=== PATIENT | female | born 2000 | race Caucasian/White ===

== ENCOUNTER 2022-09-26 17:42 | Emergency (ER) | payer OTHER, SELFPAY ==
[2022-09-26 17:51] VITALS: BP 113/82; PULSE 94; RESP 18; TEMP 37.3; O2SAT 98; BMI 20.7
--- NOTE | 2022-09-26 17:59 | XR_ITS ---
[address] [address] Patient Name: ANAHI CARNEY MRN: [id number] date: 2000 Sex: F Assigned Patient Location: ER Current Patient Location: ED.MAIN Accession/Order Number: [id number] Exam Date: 09/26/2022 18:10 Report Date: 09/26/2022 18:30 At the request of: CLAUDIA CHANDRA Procedure: XR hand LT min 3V EXAM: XR hand LT min 3V HISTORY: Dog bite COMPARISON: None. TECHNIQUE: 3 views FINDINGS: No radiodense foreign body, osseous lesion, fracture, dislocation or subluxation. Joint spaces are normal. No visualized effusion. No visualized soft tissue edema. IMPRESSION: Normal x-rays Electronically authenticated by: MAHI HILLS Date: 09/26/2022 18:30
--- NOTE | 2022-09-26 18:38 | ED.ANIMALBI1 ---
HPI - Animal Bite General Chief Complaint: Animal Bite Stated Complaint: Animal BITE Time Seen by Provider: 09/26/22 17:57 Source: patient Mode of arrival: walk-in Limitations: no limitations History of Present Illness HPI narrative: cc - bitten by dog Patient works at an [employer] [place] [employer] and was bitten by one of the dogs yesterday on the left hand. She as a small puncture on the left index finger and a small abrasion on the left ring finger. Her tetanus is up to date. She has taken OTC meds for pain. Related Data Home Medications Medication Instructions Recorded Confirmed escitalopram oxalate 10 mg tablet mg PO DAILY 09/26/22 Allergies Allergy/AdvReac Type Severity Reaction Status Date / Time No Known Drug Allergies Allergy Verified 09/26/22 17:55 PFSH PFSH Social History Smoking status: Never smoker Exam Narrative: Exam Narrative: Nurses notes and vital signs reviewed and patient is not hypoxic. afebrile General: Well-appearing and in no apparent distress. Skin: Warm, dry, no pallor noted. No rash. Head: Normocephalic, atraumatic. Cardiovascular: normal peripheral perfusion. Respiratory: No accessory muscle use or respiratory distress. Lungs are clear to auscultation, no wheezing, rales or rhonchi Musculoskeletal: puncture wound left index finger. small abrasion to left ring finger. normal ROM all fingers and hand Neurological: A&O x4. No cranial nerve dysfunction observed. No truncal ataxia. Moves all extremities. Sensation intact. Psychiatric: Cooperative and interactive. Normal mood and affect. Constitutional: Vital Signs, click to edit/add: Vital Signs - 24 hr 09/26/22 17:51 Temperature 99.1 F Pulse Rate [Monito r] 94 H Respiratory Rate 18 Blood Pressure [Le ft Arm] 113/82 H Pulse Oximetry 98 Oxygen Delivery Me thod Room Air Course Vital Signs Vital signs: Vital Signs Temperature 99.1 F 09/26/22 17:51 Pulse Rate 94 H 09/26/22 17:51 Respiratory Rate 18 09/26/22 17:51 Blood Pressure 113/82 H 09/26/22 17:51 Pulse Oximetry 98 09/26/22 17:51 Oxygen Delivery Method Room Air 09/26/22 17:51 Temperature 99.1 F 09/26/22 17:51 Pulse Rate 94 H 09/26/22 17:51 Respiratory Rate 18 09/26/22 17:51 Blood Pressure 113/82 H 09/26/22 17:51 Pulse Oximetry 98 09/26/22 17:51 Oxygen Delivery Method Room Air 09/26/22 17:51 MDM - Animal Bite MDM Narrative Medical decision making narrative: xrays of the left hand negative for fracture of foreign material. Patient given a dose of augmentin in the ED and discharged home with a prescription for more augmentin. She will need to see occupational health for follow up. Imaging Data xray left hand: Radiologist's impression: No radiodense foreign body, osseous lesion, fracture, dislocation or subluxation. Joint spaces are normal. No visualized effusion. No visualized soft tissue edema. IMPRESSION: Normal x-rays Electronically authenticated by: MAHI HILLS Date: 09/26/2022 18:30 Discharge Plan Discharge Chief Complaint: Animal Bite Clinical Impression: Dog bite Patient Disposition: Home, Self-Care Time of Disposition Decision: 18:43 Prescriptions: No Action escitalopram oxalate 10 mg tablet PO DAILY Additional Instructions: call to follow up with occupational health Stand Alone Forms: Portal Instructions
== END 2022-09-26 19:10 | disposition home or self-care (01) ==
PROVIDERS: Emergency Provider Emergency Medicine; PCP Family Medicine
DX: S61.452A Open bite of left hand, initial encounter (principal); W54.0XXA Bitten by dog, initial encounter
CPT/HCPCS: 73130; 99283

== ENCOUNTER 2024-03-30 15:23 | Outpatient (OUT) | payer OTHER, SELFPAY ==
[2024-03-30 15:54] LABS: Basophils Percent Auto 0.6 % (0.2-2.0); Eosinophils Absolute Auto 0.1 10^3/uL (0.0-0.7); Eosinophils Percent Auto 1.1 % (0.9-7.0); Hematocrit 43.4 % (36.0-48.0); Hemoglobin 14.3 g/dL (12.0-16.0); Immature Granulocytes Abs Auto 0.03 10^3/uL (0.00-0.03); Immature Granulocytes Pct Auto 0.4 % (0.0-0.5); Lymphocytes Absolute Auto 2.2 10^3/uL (1.2-3.8); Lymphocytes Percent Auto 30.9 % (20.5-60.0); Mean Corpuscular HGB Conc 32.9 g/dL (29.9-35.2); Mean Corpuscular Hemoglobin 30.4 pg (26.7-34.0); Mean Corpuscular Volume 92.3 fL (81.0-99.0); Mean Platelet Volume 10.4 fL (9.5-13.5); Monocytes Absolute Auto 0.4 10^3/uL (0.3-0.8); Monocytes Percent Auto 5.3 % (1.7-12.0); Neutrophils Absolute Auto 4.3 10^3/uL (1.4-6.5); Neutrophils Percent Auto 61.7 % (43.0-75.0); Platelet Count 213 10^3/uL (150-450); Red Cell Distribution Width 11.6 % (11.0-15.0)
[2024-03-30 16:26] LABS: BUN Creatinine Ratio 17.6; Calcium 9.6 mg/dL (8.5-10.1); Carbon Dioxide 26.5 mmol/L (21.0-32.0); Chloride 105 mmol/L (98-107); Estimated GFR (African America >60 (>=60 mL/min/1.73m^2); Estimated GFR (Non-African Ame >60 (>=60 mL/min/1.73m^2); Glucose 83 mg/dL (74-106); Potassium 3.5 mmol/L (3.5-5.1); Sodium 141 mmol/L (136-145)
[2024-04-01 06:10] LABS: C-Reactive Protein, Cardiac 0.47 mg/L (0.00-3.00)
[2024-04-01 15:10] LABS: ANA Direct Negative (Negative); Anti-DNA (DS) Ab Qn <1 IU/mL (0-9)
== END 2024-03-30 15:24 | disposition home or self-care (01) ==
LOC: LAB 15:26
PROVIDERS: PCP Family Medicine; Visit Provider Family Medicine
DX: R21 Rash and other nonspecific skin eruption (principal); R53.83 Other fatigue; R68.89 Other general symptoms and signs
CPT/HCPCS: 36415; 80048; 85025; 86038; 86140; 86225; 86235

== ENCOUNTER 2024-10-14 15:43 | Emergency (ER) | payer OTHER, SELFPAY ==
[2024-10-14 15:47] VITALS: BP 120/87; PULSE 105; TEMP 36.9; O2SAT 98; BMI 23.5
[2024-10-14 17:32] LABS: Bilirubin Urine COLOR INTERFERENCE (NEGATIVE); Blood Urine COLOR INTERFERENCE (NEGATIVE); Clarity Urine SLIGHTLY CLOUDY (CLEAR); Color Urine DK ORANGE (YELLOW); Glucose Urine UA COLOR INTERFERENCE mg/dL (NEGATIVE); Ketones Urine COLOR INTERFERENCE mg/dL (NEGATIVE); Leukocyte Esterase Urine COLOR INTERFERENCE (NEGATIVE); Nitrite Urine COLOR INTERFERENCE (NEGATIVE); Protein Urine COLOR INTERFERENCE mg/dL (NEG/TRACE); Specific Gravity Urine 1.005 (1.005-1.025); Urobilinogen Urine COLOR INTERFERENCE EU/dL (0.2-1.0); pH Urine COLOR INTERFERENCE (5.0-9.0)
[2024-10-14 17:33] LABS: HCG Qualitative Urine* NEGATIVE (NEGATIVE); Internal Control Within Normal Limits; Urine Microscopic Indicated YES
[2024-10-14 17:48] LABS: Bacteria Urine MODERATE #/HPF (NONE SEEN); Cast Seen? NONE SEEN #/LPF (NONE SEEN); Crystals Seen? None Seen #/HPF (None Seen); Mucus Urine SMALL (NONE SEEN); Squamous Epithelial Cell Urine FEW #/LPF (NONE/RARE); Urine Culture Indicated YES-FRMC; WBC Urine 50-75 #/HPF (NONE SEEN)
[2024-10-14 18:43] LABS: Basophils Percent Auto 0.3 % (0.2-2.0); Eosinophils Percent Auto 0.2 % (0.9-7.0); Hematocrit 45.3 % (36.0-48.0); Hemoglobin 15.7 g/dL (12.0-16.0); Immature Granulocytes Abs Auto 0.05 10^3/uL (0.00-0.03); Immature Granulocytes Pct Auto 0.4 % (0.0-0.5); Lymphocytes Absolute Auto 1.4 10^3/uL (1.2-3.8); Lymphocytes Percent Auto 10.3 % (20.5-60.0); Mean Corpuscular HGB Conc 34.7 g/dL (29.9-35.2); Mean Corpuscular Hemoglobin 30.8 pg (26.7-34.0); Mean Platelet Volume 11.1 fL (9.5-13.5); Monocytes Absolute Auto 0.8 10^3/uL (0.3-0.8); Monocytes Percent Auto 5.8 % (1.7-12.0); Neutrophils Absolute Auto 11.3 10^3/uL (1.4-6.5); Platelet Count 221 10^3/uL (150-450); Red Blood Count 5.09 10^6/uL (4.20-5.40); Red Cell Distribution Width 11.6 % (11.0-15.0); White Blood Count 13.6 10^3/uL (4.0-11.0)
--- NOTE | 2024-10-14 18:45 | ED.FEMALEGU1 ---
HPI - Female Genitourinary General Chief complaint: Urogenital-Female Stated complaint: UTI FOR A COUPLE DAYS,PEEING AND THROWING UP BLOOD Time Seen by Provider: 10/14/24 15:52 Source: patient Mode of arrival: walk-in Limitations: no limitations History of Present Illness HPI Narrative: The patient is coming to the ER with concern of burning with urination she denies any fever chills or any other concern but she mentioned that she had a history of UTI before that caused her to have some kidney issues and that why she is coming to the ER to be evaluated The patient denies any blood in stool she denies any blood in urine and she denies any other concerns Related Data Home Medications ?Medication ?Instructions ?Recorded ?Confirmed escitalopram oxalate 10 mg tablet mg PO DAILY 09/26/22 Held on 10/14/24. Instructions: Pt stopped taking Previous Rx's ?Medication ?Instructions ?Recorded cephalexin 500 mg capsule 500 mg PO Q8H 7 days #21 caps 10/14/24 Allergies Allergy/AdvReac Type Severity Reaction Status Date / Time No Known Drug Allergies Allergy Verified 10/14/24 15:51 Review of Systems ROS Status of ROS 10 or more systems reviewed and unremarkable except as noted in history and below PFSH PFSH Social History Smoking status: Never smoker Little interest or pleasure in doing things: not at all Feeling down, depressed, or hopeless: not at all Exam Narrative Exam Narrative: Nurses notes and vital signs reviewed and patient is not hypoxic. General: Well-appearing and in no apparent distress. Skin: Warm, dry, no pallor noted. No rash. Head: Normocephalic, atraumatic. Neck: Supple, non-tender. Cardiovascular: Regular Rate and Rhythm without murmur, gallop or rub. Respiratory: No accessory muscle use or respiratory distress. Lungs are clear to auscultation, no wheezing, rales or rhonchi Chest Wall: no tenderness Back: No midline thoracic or lumbar vertebral tenderness. No CVA tenderness Musculoskeletal: normal ROM, no calf or popliteal tenderness, no lower extremity edema/swelling GI: Abdomen is soft, non-distended. Normal bowel sounds. No masses appreciated. No tenderness to palpation. No rebound, guarding, or rigidity noted. Neurological: A&O x4. No cranial nerve dysfunction observed. No truncal ataxia. Moves all extremities. Sensation intact. Psychiatric: Cooperative and interactive. Normal mood and affect. Constitutional Vital Signs, click to edit/add: Last Vital Signs Temp 98.4 F 10/14/24 15:47 Pulse 105 H 10/14/24 15:47 Resp 16 10/14/24 15:47 BP 120/87 10/14/24 15:47 Pulse Ox 98 10/14/24 15:47 O2 Del Method Room Air 10/14/24 15:47 Course Vital Signs Vital signs: Vital Signs Temperature 98.4 F 10/14/24 15:47 Pulse Rate 105 H 10/14/24 15:47 Respiratory Rate 16 10/14/24 15:47 Blood Pressure 120/87 10/14/24 15:47 Pulse Oximetry 98 10/14/24 15:47 Oxygen Delivery Method Room Air 10/14/24 15:47 Temperature 98.4 F 10/14/24 15:47 Pulse Rate 105 H 10/14/24 15:47 Respiratory Rate 16 10/14/24 15:47 Blood Pressure 120/87 10/14/24 15:47 Pulse Oximetry 98 10/14/24 15:47 Oxygen Delivery Method Room Air 10/14/24 15:47 MDM - Female Genitourinary MDM Narrative Medical decision making narrative: The patient urinalysis shows UTI signs with the elevated white blood cell although the patient did take rldj-jwn-gohjhuc medication that had some discoloration affecting the urine The patient CBC shows some elevation of the white blood cell but the patient vitals here are normal with a heart rate is 83 at bedside Chemistry was within normal and the patient was given 1 dose of ceftriaxone discharged home with Keflex 3 times daily The patient presentation right now is mostly secondary to simple UTI or cystitis The patient is to follow up with primary care physician in next 2-3 days or to return to the emergency department should any of the signs or symptoms worsen or new symptoms develop. The patient agrees with the following Diagnosis and Treatment plan and the patient will be discharged home. Lab Data Labs: Lab Results 10/14/24 10/14/24 Range/Units 16:45 16:59 WBC 13.6 H (4.0-11.0) 10^3/uL RBC 5.09 (4.20-5.40) 10^6/uL Hgb 15.7 (12.0-16.0) g/dL Hct 45.3 (36.0-48.0) % MCV 89.0 (81.0-99.0) fL MCH 30.8 (26.7-34.0) pg MCHC 34.7 (29.9-35.2) g/dL RDW 11.6 (11.0-15.0) % Plt Count 221 (150-450) 10^3/uL MPV 11.1 (9.5-13.5) fL Neut % (Auto) 83.0 H (43.0-75.0) % Lymph % (Auto) 10.3 L (20.5-60.0) % [place] % (Auto) 5.8 (1.7-12.0) % Eos % (Auto) 0.2 L (0.9-7.0) % Baso % (Auto) 0.3 (0.2-2.0) % Neut # (Auto) 11.3 H (1.4-6.5) 10^3/uL Lymph # (Auto) 1.4 (1.2-3.8) 10^3/uL [place] # (Auto) 0.8 (0.3-0.8) 10^3/uL Eos # (Auto) 0.0 (0.0-0.7) 10^3/uL Baso # (Auto) 0.0 (0.0-0.1) 10^3/uL Abs Immat Gran (auto) 0.05 H (0.00-0.03) 10^3/uL Imm/Tot Granulo (auto) 0.4 (0.0-0.5) % Sodium 141 (136-145) mmol/L Potassium 3.8 (3.5-5.1) mmol/L Chloride 103 (98-107) mmol/L Carbon Dioxide 28.8 (21.0-32.0) mmol/L Anion Gap 13.0 BUN 11.0 (7.0-18.0) mg/dL Creatinine 0.72 (0.55-1.02) mg/dL Est GFR ( Amer) >60 (>=60 mL/min/1.73m^2) Est GFR (Non-Af Amer) >60 (>=60 mL/min/1.73m^2) BUN/Creatinine Ratio 15.3 Glucose 82 (74-106) mg/dL Calcium 10.0 (8.5-10.1) mg/dL Total Bilirubin 0.9 (0.2-1.0) mg/dL AST 21 (15-37) U/L ALT 26 (14-59) U/L Alkaline Phosphatase 98 (46-116) U/L Total Protein 7.6 (6.4-8.2) g/dL Albumin 4.5 (3.4-5.0) g/dL Globulin 3.1 g/dL Albumin/Globulin Ratio 1.5 Urine Color Dk orange A (YELLOW) Urine Clarity Slightly cloudy A (CLEAR) Urine pH Color interference A (5.0-9.0) Ur Specific Martell 1.005 (1.005-1.025) Urine Protein Color interference A (NEG/TRACE) mg/dL Urine Glucose (UA) Color interference A (NEGATIVE) mg/dL Urine Ketones Color interference A (NEGATIVE) mg/dL Urine Occult Blood Color interference A (NEGATIVE) Urine Nitrite Color interference A (NEGATIVE) Urine Bilirubin Color interference A (NEGATIVE) Urine Urobilinogen Color interference A (0.2-1.0) EU/dL Ur Leukocyte Esterase Color interference A (NEGATIVE) Urine RBC 2-5 A (0-2) #/HPF Urine WBC 50-75 A (NONE SEEN) #/HPF Ur Squamous Epith Cells Few A (NONE/RARE) #/LPF Urine Crystals None seen (None Seen) #/HPF Urine Bacteria Moderate A (NONE SEEN) #/HPF Urine Casts None seen (NONE SEEN) #/LPF Urine Mucus Small A (NONE SEEN) Ur Culture Indicated? Yes-[facility] [place] Urine HCG, Qual Negative (NEGATIVE) Discharge Plan Discharge Chief Complaint: Urogenital-Female Clinical Impression: UTI (urinary tract infection) Patient Disposition: Home, Self-Care Time of Disposition Decision: 18:51 Condition: Good Prescriptions / Home Meds: New cephalexin 500 mg capsule 500 mg PO Q8H 7 Days Qty: 21 0RF No Action escitalopram oxalate 10 mg tablet PO DAILY Print Language: Citizen Of [place] Instructions: Urinary Tract Infection in Women (DC) Referrals: Susan Haynes MD [Primary Care Provider, [facility]] - 1 week Discharge Date/Time: 10/14/24 19:40
[2024-10-14 18:46] LABS: Alanine Aminotransferase 26 U/L (14-59); Albumin Globulin Ratio 1.5; Albumin Level 4.5 g/dL (3.4-5.0); Alkaline Phosphatase 98 U/L (46-116); Aspartate Amino Transferase 21 U/L (15-37); BUN Creatinine Ratio 15.3; Bilirubin Total 0.9 mg/dL (0.2-1.0); Carbon Dioxide 28.8 mmol/L (21.0-32.0); Chloride 103 mmol/L (98-107); Estimated GFR (African America >60 (>=60 mL/min/1.73m^2); Estimated GFR (Non-African Ame >60 (>=60 mL/min/1.73m^2); Globulin 3.1 g/dL; Glucose 82 mg/dL (74-106); Potassium 3.8 mmol/L (3.5-5.1); Sodium 141 mmol/L (136-145); Total Protein 7.6 g/dL (6.4-8.2)
[2024-10-14] MEDS: CEFTRIAXONE 1,000 MG in 0.9 % SODIUM CHLORIDE 50 ML 100 MG IV (19:04)
== END 2024-10-14 19:40 | disposition home or self-care (01) ==
PROVIDERS: Emergency Provider Emergency Medicine; PCP Family Medicine
DX: N39.0 Urinary tract infection, site not specified (principal); Z87.440 Personal history of urinary (tract) infections
CPT/HCPCS: 36415; 80053; 81001; 84703; 85025; 87086; 87088; 87186; 96365; 99285; J0696

== ENCOUNTER 2025-01-27 20:16 | Emergency (ER) | payer OTHER, SELFPAY ==
[2025-01-27 20:20] VITALS: BP 112/82; PULSE 85; TEMP 37.3; O2SAT 98; BMI 21.9
--- OUTSIDE RECORDS SUMMARY | 2025-01-27 20:22 | XMS_ITS | Clinical Summary ---
Author Organization [facility] Address [address] [place] [address] Care Team Providers Care Restaurant Managing Partner Name Role Phone Susan Haynes MD Primary Care Provider [phone] Allergies Active Allergy Reactions Criticality Noted Date Comments Amoxicillin 12/10/2023 Medications busPIRone (Buspar) 10 MG tablet 12/06/2023 Active DULoxetine (Cymbalta) [address] capsule 06/03/2023 Active hydrOXYzine HCl (Atarax) 25 MG tablet 06/05/2023 Active Drospirenone (Slynd) 4 MG tabletIndication s: control counseling Take 4 mg by mouth Daily 28 tablet 11 11/08/2024 Active Active Problems Problem Noted Date Diagnosed Date Hearing loss 12/10/2023 Vitamin D deficiency 05/12/2019 Encounters Date Type Department Care Team Description 11/08/2024 Refill [facility] [address] [place] [address] Kristi Sebastian LPN control counseling from Last 3 Months Family History Medical History Relation Name Comments Breast cancer Mother's Sister Relation Name Status Comments Father Alive Mother Alive Mother's Sister Social History Tobacco Use Types Packs/Day Years Used Date Smoking Tobacco: Never Smokeless Tobacco: Never Tobacco Cessation:Counseling Given: Not Answered Comments No Sex and Gender Information Value Date Recorded Sex Assigned at Not on file Legal Sex Female 8:11 PM EDT Gender Identity Not on file Sexual Orientation Not on file Last Filed Vital Signs Vital Sign Reading Time Taken Comments Blood Pressure 120/70 09/30/2024 1:02 PM EDT Pulse 88 07/22/2024 12:02 PM EDT Temperature 37.1 C (98.7 F) 07/22/2024 12:02 PM EDT Respiratory Rate 20 07/22/2024 12:02 PM EDT Oxygen Saturation 98% 07/22/2024 12:02 PM EDT Inhaled Oxygen Concentration - - Weight 68 kg (150 lb) 09/30/2024 1:02 PM EDT Height 167.6 cm (5' 6 ) 02/11/2022 12:00 PM EDT Body Mass Index 24.21 02/11/2022 12:00 PM EDT Plan of Treatment Upcoming Encounters Date Type Department Care Team (Late st Contact Info) Description 10/13/2025 1:30 PM EDT Office Visit [facility] [address] [place] [address] Michelle Sidhu DO [address] [place] [address] Insurance [employer] Care Teams Restaurant Managing Partner Relationship Specialty Start Date End Date Susan Haynes MD [address] [facility] [place] [id number] PCP - General Family Medicine 12/10/23
--- OUTSIDE RECORDS SUMMARY | 2025-01-27 20:22 | XMS_ITS | Clinical Summary ---
Author Organization [facility] Address [address] [place] [address] Care Team Providers Care Damage Prevention Coordinator Name Role Phone Unavailable Primary Care Provider Unavailabl e Allergies Active Allergy Reactions Criticality Noted Date Comments Kiwi Extract 06/07/2024 Medications DULoxetine (CYMBALTA) 60 MG extended release capsule Take 1 capsule by mouth daily Active busPIRone (BUSPAR) 10 MG tablet Take 1 tablet by mouth 2 times daily Active dicyclomine (BENTYL) 20 MG tablet Take 1 tablet by mouth every 6 hours Active hydrOXYzine HCl (ATARAX) 25 MG tablet Take 1 tablet by mouth 3 times daily as needed for Itching Active Drospirenone (SLYND) 4 MG TABS Take by mouth Active Social History Tobacco Use Types Packs/Day Years Used Date Smoking Tobacco: Never Assessed Interpersonal Safety Domain Source: IP Abuse Scr eening Answer Date Recorded Physical abuse Denies 06/07/2024 Verbal abuse Denies 06/07/2024 Emotional abuse Denies 06/07/2024 Financial abuse Denies 06/07/2024 Sexual abuse Denies 06/07/2024 Comments Unknown Sex and Gender Information Value Date Recorded Sex Assigned at Not on file Legal Sex Female 1:33 PM EST Gender Identity Not on file Sexual Orientation Not on file Last Filed Vital Signs Vital Sign Reading Time Taken Comments Blood Pressure 110/75 06/07/2024 1:42 PM EST Pulse 94 06/07/2024 1:42 PM EST Temperature 37.3 C (99.2 F) 06/07/2024 1:42 PM EST Respiratory Rate 12 06/07/2024 1:42 PM EST Oxygen Saturation 98% 06/07/2024 1:42 PM EST Inhaled Oxygen Concentration - - Weight - - Height - - Body Mass Index - - Plan of Treatment Health Maintenance Due Date Last Done Comments DTaP/Tdap/Td vaccine (1 - Tdap) 2021 Flu vaccine (#1) 11/26/2024 COVID-19 Vaccine ( - 2023-2 5 season) 2024 Polio vaccine Aged Out No longer elig ible based on patient's age to complete this topic Insurance
--- OUTSIDE RECORDS SUMMARY | 2025-01-27 20:22 | XMS_ITS | Patient Health Record ---
Author Organization [facility] Address [address] [place], [place] [id number] Care Team Providers Care Headend Technician Name Role Phone Ravindra Noble Unavailable [phone] Allergies No Known Allergies Reason For Referral No Information Medications Medication SIG (Take, Route, Frequency, Duration) Notes Start Date End Date Status Valtrex 1 GM 1 tablet Orally Once a day; Duration: 5 days 07/18/2022 Active Venlafaxine HCl ER 37.5 MG 1 tablet Oral ly Once a day; Duration: 30 days Not-Takin g Norethindrone 0.35 MG 1 tablet Orally On ce a day Not-Taking Escitalopram Oxalate 10 MG TAKE 1 TABLET BY MOUTH EVERY DAY Oral; Duration: 30 Days Active Social History Tobacco Use: Social History Observation Description Date Details (start date - stop date) Never Smoker NA - NA Sex Assigned At : Social History Observation Description Sex Assigned At Female Tobacco Use/Smoking Question Answer Notes Tobacco use: nonsmoker Problems Problem Type SNOMED Code ICD Code Onset Dates Problem Status W/U Status Risk Notes Problem Intermenstrual bleeding - irregular (53447650) Breakthrough bleeding on control pills (N92.1) Active confirmed Problem Venereal disease screening (683944169) Screen for STD (sexually transmitted disease) (Z11.3) Active confirmed Problem Depressive disorder (disorder) (32476436) Depression, unspecified depression type (F32.A) Active confirmed Problem Herpetic vulvovaginitis (75500547) 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
--- NOTE | 2025-01-27 20:59 | ED_ITS ---
HPI HPI - General Adult General Chief complaint: Urogenital-Female Stated complaint: PAINFUL/ BLOOD IN URINATION, BACK/LOW AB PAIN Time Seen by Provider: 01/27/25 20:19 Source: patient Mode of arrival: walk-in Limitations: no limitations History of Present Illness HPI narrative: Patient presents with 2 to 3-day history of urinary burning/bleeding/frequency/urgency. She is states it started while the lines of a pressure and has changed into a burning sensation she does have history of multiple UTIs. Patient also notes that she was seen by dentist yesterday has been on multiple antibiotics recently including azithromycin and clindamycin. Patient feels hot and cold denies any nausea vomiting. Symptoms mild to moderate severity. She has been taking ibuprofen 800 mg every 6 hours and Tylenol 1 g every 6 hours per dentist. Onset (ago): day(s) (3) Severity: moderate Quality: Reports burning Related Data Home Medications ?Medication ?Instructions ?Recorded ?Confirmed escitalopram oxalate 10 mg tablet mg PO DAILY 09/26/22 Held on 10/14/24. Instructions: Pt stopped taking drospirenone (contraceptive) 4 mg 1 tab PO DAILY 01/2701/27/25 (28) tablet (Slynd) ondansetron 4 mg disintegrating 4 mg PO Q8H PRN nausea and vomiting 01/27/25 01/27/25 tablet Previous Rx's ?Medication ?Instructions ?Recorded cephalexin 500 mg capsule 500 mg PO Q8H 7 days #21 cap s 10/14/24 cephalexin 500 mg tablet 500 mg PO Q12H 10 days #20 t abs 01/27/25 phenazopyridine 200 mg tablet 200 mg PO Q8H 6 doses #6 tabs 01/27/25 (Pyridium) Allergies Allergy/AdvReac Type Severity Reaction Status Date / Time No Known Drug Allergies Allergy Verified 01/27/25 20:25 Opioid HPI Opioid Management Most Recent Opioid Data: Last Pain Scale 8 Today, 20:33 Last ED Pain Assessment Today, 20:33 Review of Systems ROS Status of ROS 10 or more systems reviewed and unremark able except as noted in history and below Constitutional Reports: chills Ears, nose, mouth, and throat Reports: mouth pain; Denies: neck pain Cardiovascular Denies: chest pain Respiratory Denies: cough Gastrointestinal Reports: abdominal pain; Denies: vomiting Genitourinary Reports: painful urination, urinary frequency, urinary urgency, blood in urine, difficulty voiding and irregular period Musculoskeletal Denies: back pain Neurological Denies: headache Hematologic/Lymphatic Denies: easy bruising Allergic/Immunologic Denies: hives PFSH PFS Social History Smoking status: Never smoker Little interest or pleasure in doing things: not at all Feeling down, depressed, or hopeless: not at all Exam Constitutional Vital Signs, click to edit/add: Last Vital Signs Temp 99.2 F 01/27/25 20:20 Pulse 85 01/27/25 20:20 Resp 18 01/27/25 20:20 BP 112/82 01/27/25 20:20 Pulse Ox 98 01/27/25 20:20 O2 Del Method Room Air 01/27/25 20:20 Documenting provider has reviewed patient's vital signs: yes Common normals: no apparent distress, average body habitus and oriented x3 HENMT Common normals: normocephalic Head and scalp: normal to inspection Face and sinus: normal facial exam General ear: hearing not grossly impaired External ear: external ears normal External auditory canal: EACs normal Mouth: lip normal and tongue normal; no trismus and no restricted motion Teeth and gingiva: other (Left lower molar removal. Negative erythema or drainable fluid collection) Eye Common normals: PERRL General eye: normal appearance of both eyes Neck & C-Spine Common normals: full ROM and supple Respiratory Common normals: normal respiratory effort and clear to auscultation bilaterally Effort & inspection: able to speak in complete sentences Cardio Common normals: regular rate, regular rhythm, S1 normal heart sound and S2 normal heart sound GI Common normals: Normal to inspection, nondistended, normoactive bowel sounds present Palpation: soft and tender Details: suprapubic; not firm Back & Pelvis Common normals: no CVA tenderness and thoraco-lumbar ROM normal General back: no CVA tenderness Extremity Common normals: normal to inspection and full ROM Other: Patient ambulatory without difficulty in the emergency room Neuro Common normals: oriented x3, moves all extremities and no focal motor deficits Psych Common normals: mental status grossly normal and thought process normal Course Vital Signs Vital signs: Vital Signs Temperature 99.2 F 01/27/25 20:20 Pulse Rate 85 01/27/25 20:20 Respiratory Rate 18 01/27/25 20:20 Blood Pressure 112/82 01/27/25 20:20 Pulse Oximetry 98 01/27/25 20:20 Oxygen Delivery Method Room Air 01/27/25 20:20 Temperature 99.2 F 01/27/25 20:20 Pulse Rate 85 01/27/25 20:20 Respiratory Rate 18 01/27/25 20:20 Blood Pressure 112/82 01/27/25 20:20 Pulse Oximetry 98 01/27/25 20:20 Oxygen Delivery Method Room Air 01/27/25 20:20 Medical Decision Making MDM Narrative Medical decision making narrative: Patient has history of multiple UTIs was recently on antibiotics including azithromycin and clindamycin. She is on control pills has irregular periods she states her last most 3 to 4 months ago. But states this is consistent with her past periods and BCP's feels hot and cold will labs CBC BMP urinalysis test. Discussed plan of care with patient including prior radium and antibiotics if required patient agreeable plan of care. Patient positive for blood and leukocyte esterase. Will add Keflex patient also has recent dentistry and has history of dental infection. Keflex 500 twice daily for 10 days. Will also add Pyridium patient states this medication helps with her symptoms. 200 mg every 8 hours #6 and work note provided. Patient agreeable plan of care Differential Diagnosis Differential Diagnosis: Differential diagnose include but not limited to UTI, dysuria Lab Data Labs: Lab Results 01/27/25 01/27/25 01/27/25 Range/Units 20:54 20:56 20:57 WBC 8.3 (4.0-11.0) 10^3/uL RBC 4.57 (4.20-5.40) 10^6/uL Hgb 14.3 (12.0-16.0) g/dL Hct 41.5 (36.0-48.0) % MCV 90.8 (81.0-99.0) fL MCH 31.3 (26.7-34.0) pg MCHC 34.5 (29.9-35.2) g/dL RDW 11.6 (11.0-15.0) % Plt Count 197 (150-450) 10^3/uL MPV 11.2 (9.5-13.5) fL Neut % (Auto) 57.7 (43.0-75.0) % Lymph % (Auto) 33.1 (20.5-60.0) % Rabun % (Auto) 7.3 (1.7-12.0) % Eos % (Auto) 1.0 (0.9-7.0) % Baso % (Auto) 0.7 (0.2-2.0) % Neut # (Auto) 4.8 (1.4-6.5) 10^3/uL Lymph # (Auto) 2.7 (1.2-3.8) 10^3/uL Rabun # (Auto) 0.6 (0.3-0.8) 10^3/uL Eos # (Auto) 0.1 (0.0-0.7) 10^3/uL Baso # (Auto) 0.1 (0.0-0.1) 10^3/uL Abs Immat Gran (auto) 0.02 (0.00-0.03) 10^3/uL Imm/Tot Granulo (auto) 0.2 (0.0-0.5) % Sodium 139 (136-145) mmol/L Potassium 3.8 (3.5-5.1) mmol/L Chloride 104 (98-107) mmol/L Carbon Dioxide 25.4 (21.0-32.0) mmol/L Anion Gap 13.4 BUN 14.0 (7.0-18.0) mg/dL Creatinine 1.01 (0.55-1.02) mg/dL Est GFR ( Amer) >60 (>=60 mL/min/1.73m^2) Est GFR (Non-Af Amer) >60 (>=60 mL/min/1.73m^2) BUN/Creatinine Ratio 13.9 Glucose 81 (74-106) mg/dL Calcium 9.5 (8.5-10.1) mg/dL Urine Color Dk yellow (YELLOW) Urine Clarity Cloudy A (CLEAR) Urine pH 5.5 (5.0-9.0) Ur Specific [facility] >=1.030 A (1.005-1.025) Urine Protein Trace (NEG/TRACE) mg/dL Urine Glucose (UA) Negative (NEGATIVE) mg/dL Urine Ketones Trace A (NEGATIVE) mg/dL Urine Occult Blood Small A (NEGATIVE) Urine Nitrite Negative (NEGATIVE) Urine Bilirubin Negative (NEGATIVE) Urine Urobilinogen 0.2 (0.2-1.0) EU/dL Ur Leukocyte Esterase Moderate A (NEGATIVE) Urine RBC 0-2 (0-2) #/HPF Urine WBC >100 A (NONE SEEN) #/HPF Ur Squamous Epith Cells Many A (NONE/RARE) #/LPF Urine Crystals None seen (None Seen) #/HPF Urine Bacteria Large A (NONE SEEN) #/HPF Urine Casts None seen (NONE SEEN) #/LPF Urine Mucus Large A (NONE SEEN) [place] [place] HCG, Qual Negative (NEGATIVE) Discharge Plan Discharge Stand Alone Forms: Work/School Release Chief Complaint: Urogenital-Female Clinical Impression: Dysuria UTI (urinary tract infection) Qualifiers: Urinary tract infection type: site unspecified Hematuria presence: with hematuria Qualified Code(s): N39.0 - Urinary tract infection, site not specified Patient Disposition: Home, Self-Care Time of Disposition Decision: 21:27 Condition: Good Mode of Transportation: Private Vehicle Prescriptions / Home Meds: New phenazopyridine [Pyridium] 200 mg tablet 200 mg PO Q8H Qty: 6 0RF cephalexin 500 mg tablet 500 mg PO Q12H 10 Days Qty: 20 0RF No Action escitalopram oxalate 10 mg tablet PO DAILY cephalexin 500 mg capsule 500 mg PO Q8H 7 Days Qty: 21 0RF Slynd 4 mg (28) tablet 1 tab PO DAILY ondansetron 4 mg tablet,disintegrating 4 mg PO Q8H PRN (Reason: nausea and vomiting) Print Language: Citizen Of [place] Instructions: Urinary Tract Infection in Women (DC) Additional Instructions: Drink plenty of fluids. Continue Tylenol and ibuprofen as directed by dentist. Follow-up with primary care. Return to ER if any symptoms worsen or new symptoms develop. Referrals: Susan Haynes MD [Primary Care Provider, Family Practice] - 1 week
[2025-01-27 21:08] LABS: Hematocrit 41.5 % (36.0-48.0); Hemoglobin 14.3 g/dL (12.0-16.0); Immature Granulocytes Abs Auto 0.02 10^3/uL (0.00-0.03); Immature Granulocytes Pct Auto 0.2 % (0.0-0.5); Lymphocytes Absolute Auto 2.7 10^3/uL (1.2-3.8); Mean Corpuscular HGB Conc 34.5 g/dL (29.9-35.2); Mean Corpuscular Hemoglobin 31.3 pg (26.7-34.0); Mean Corpuscular Volume 90.8 fL (81.0-99.0); Platelet Count 197 10^3/uL (150-450); Red Blood Count 4.57 10^6/uL (4.20-5.40); White Blood Count 8.3 10^3/uL (4.0-11.0)
[2025-01-27 21:12] LABS: HCG Qualitative Urine* NEGATIVE (NEGATIVE)
[2025-01-27 21:12] LABS: Anion Gap 13.4; Blood Urea Nitrogen 14.0 mg/dL (7.0-18.0); Calcium 9.5 mg/dL (8.5-10.1); Carbon Dioxide 25.4 mmol/L (21.0-32.0); Chloride 104 mmol/L (98-107); Estimated GFR (African America >60 (>=60 mL/min/1.73m^2); Estimated GFR (Non-African Ame >60 (>=60 mL/min/1.73m^2); Glucose 81 mg/dL (74-106); Potassium 3.8 mmol/L (3.5-5.1); Sodium 139 mmol/L (136-145)
[2025-01-27] MEDS: PHENAZOPYRIDINE 100 MG TABLET 200 MG PO (21:15)
[2025-01-27 21:17] LABS: Glucose Urine UA NEGATIVE (NEGATIVE)
[2025-01-27 21:23] LABS: Cast Seen? NONE SEEN #/LPF (NONE SEEN); Crystals Seen? None Seen #/HPF (None Seen); Urine Culture Indicated YES-FRMC
[2025-01-27] MEDS: CEPHALEXIN 500 MG CAPSULE PO (21:43)
[2025-01-27 21:47] VITALS: BP 103/57; PULSE 67; O2SAT 97
== END 2025-01-27 21:47 | disposition home or self-care (01) ==
PROVIDERS: Physician Assistant; Emergency Provider Emergency Medicine; PCP Family Medicine
DX: N39.0 Urinary tract infection, site not specified (principal); R30.0 Dysuria; Z87.440 Personal history of urinary (tract) infections
CPT/HCPCS: 36415; 80048; 81001; 84703; 85025; 87086; 87088; 87186; 99284